=== PATIENT | female | born 1990 | race Caucasian/White ===

== ENCOUNTER 2017-06-16 02:29 | Emergency (ER) | payer SELFPAY ==
[2017-06-16] MEDS: DIPHENHYDRAMINE 50 MG INJ IV (02:50)
[2017-06-16] MEDS: predniSONE 20 MG TAB PO (02:53)
[2017-06-16] MEDS: FAMOTIDINE 20 MG TAB PO (03:18)
== END 2017-06-16 03:40 | disposition home or self-care (01) ==
LOC: E/R 02:29
DX: T78.40XA Allergy, unspecified, initial encounter (principal); F17.210 Nicotine dependence, cigarettes, uncomplicated
CPT/HCPCS: 96374; 99284-25